=== PATIENT | male | born 1985 | race African-American/Black ===

== ENCOUNTER 2016-05-09 08:31 | Emergency (ER) | payer BC, OTHER ==
[2016-05-09] MEDS ORDERED: LIDOCAINE 5% (700 MG) TRANSDERMAL ADH..PATCH TP ONE (11:21)
--- NOTE | 2016-05-09 11:21 | ER Document Report ---
ED General - General Chief Complaint: Chest Pain Stated Complaint: CHEST PAIN TRAVEL OUTSIDE OF THE [place] IN LAST 30 DAYS: No - HPI Patient complains to provider of: chest wall pain Notes: Patient states chest wall pain center chest worse with movement began last night. Patient also states started having little sore throat night when chest pain started. Denies any recent travel denies any trauma patient states he does work out daily however no changes in her workouts. Patient states pain is sharp. Patient denies any other medical problems patient vapes was does not smoke any cigarettes does not do any drugs does not drinking alcohol. - Related Data Allergies/Adverse Reactions: No Known Allergies Allergy (Verified 05/09/16 08:32) Past Medical History - Social History Smoking Status: Former Smoker Chew tobacco use (# tins/day): No Frequency of alcohol use: Social Drug Abuse: None Family History: Reviewed & Not Pertinent Patient has suicidal ideation: No Patient has homicidal ideation: No Renal/ Medical History: Denies: Hx Peritoneal Dialysis - Immunizations Hx Diphtheria, Pertussis, Tetanus Vaccination: Yes Review of Systems - Review of Systems Constitutional: No symptoms reported EENT: No symptoms reported Cardiovascular: No symptoms reported Respiratory: No symptoms reported Gastrointestinal: No symptoms reported Genitourinary: No symptoms reported Male Genitourinary: No symptoms reported Musculoskeletal: No symptoms reported Skin: No symptoms reported Hematologic/Lymphatic: No symptoms reported Neurological/Psychological: No symptoms reported -: Yes All other systems reviewed and negative Physical Exam - Vital signs Vitals: Temp Pulse Resp BP Pulse Ox 98.4 F 84 14 154/86 H 96 05/09/16 08:37 05/09/16 08:37 05/09/16 08:37 05/09/16 08:37 05/09/16 08:37 Interpretation: Normal - General General appearance: Appears well, Alert - HEENT Head: Normocephalic, Atraumatic Eyes: Normal Pupils: PERRL - Respiratory Respiratory status: No respiratory distress Breath sounds: Normal Chest palpation: Normal Notes: There palpation of the sternal region. Patient also has reproducible midsternal pain when palpating the coracoid process insertion point of the pectoralis minor muscles. - Cardiovascular Rhythm: Regular Heart sounds: Normal auscultation Murmur: No - Abdominal Inspection: Normal Distension: No distension Bowel sounds: Normal Tenderness: Nontender Organomegaly: No organomegaly - Back Back: Normal, Nontender - Extremities General upper extremity: Normal inspection, Nontender, Normal color, Normal ROM , Normal temperature General lower extremity: Normal inspection, Nontender, Normal color, Normal ROM , Normal temperature, Normal weight bearing. No: Jacoby's sign - Neurological Neuro grossly intact: Yes Cognition: Normal Orientation: AAOx4 Nathan Coma Scale Eye Opening: Spontaneous Nathan Coma Scale Verbal: Oriented Jenners Coma Scale Motor: Obeys Commands Nathan Coma Scale Total: 15 Speech: Normal Motor strength normal: LUE, RUE, LLE, RLE Sensory: Normal - Psychological Associated symptoms: Normal affect, Normal mood - Skin Skin Temperature: Warm Skin Moisture: Dry Skin Color: Normal Course - Re-evaluation Re-evalutation: 05/09/16 11:17 Was criteria 0. Patient is reproduced with chest pain. EKG chest x-ray shows no critical etiology. Patient will be discharged home follow-up with primary care physician. - Vital Signs Vital signs: Temp Pulse Resp BP Pulse Ox 98.4 F 84 14 154/86 H 96 05/09/16 08:37 05/09/16 08:37 05/09/16 08:37 05/09/16 08:37 05/09/16 08:37 Discharge - Discharge Clinical Impression: Chest wall pain Instructions: Anti-Inflammatory Medication ([facility]), Chest Wall Pain ([facility]) Additional Instructions: Take medication as prescribed. Follow-up to primary care physician. If you received good pain relief with the Lidoderm patch you may ask your pharmacist about these patches [id number]. Drink plenty water to stay hydrated. Examination today is consistent with chest wall pain or costochondritis which is inflammation of the chest wall chest muscles and cartilage in the chest wall. This class for approximately a bit longer than 1 week please follow[facility] with your [facility] 2 weeks Prescriptions: Naproxen [Naprosyn 250 mg Tablet] 250 mg PO DAILY PRN #30 tablet PRN Reason: Forms: Return to Work
[2016-05-09 13:31] VITALS: BP 142/99
--- NOTE | 2016-05-09 16:01 | EKG REPORT ---
SEVERITY:- BORDERLINE ECG - SINUS RHYTHM BORDERLINE T ABNORMALITIES, INFERIOR LEADS : Confirmed by: Kelvin Robledo 09-May-2016 16:00:27
== END 2016-05-09 13:30 | disposition home or self-care (01) ==
LOC: ER 08:31
DX: R07.89 Other chest pain (principal); Z87.891 Personal history of nicotine dependence
CPT/HCPCS: 71020; 93005; 93010; 99285